=== PATIENT | female | born 1995 | race Caucasian/White ===

== ENCOUNTER 2019-04-21 16:10 | Emergency (ER) | payer OTHER | END 2019-04-21 18:35 | disposition left against medical advice (07) | LOC: ED 16:10 | DX: Z53.21 Procedure and treatment not carried out due to patient leaving prior to being seen by health care provider (principal) ==

== ENCOUNTER 2020-01-04 09:22 | Emergency (ER) | payer OTHER ==
[~2020-01-04] VITALS: Ht 160 cm; Wt 77.1 kg
[2020-01-04 09:32] VITALS: Ht 160 cm; Wt 77.1 kg
[2020-01-04 10:43] VITALS: BP 132/75
== END 2020-01-04 10:34 | disposition home or self-care (01) ==
LOC: ED 09:22
DX: S61.012A Laceration without foreign body of left thumb without damage to nail, initial encounter (principal); S61.512A Laceration without foreign body of left wrist, initial encounter; S61.411A Laceration without foreign body of right hand, initial encounter; W22.8XXA Striking against or struck by other objects, initial encounter; Y93.89 Activity, other specified; Y92.89 Other specified places as the place of occurrence of the external cause; Y99.8 Other external cause status

== ENCOUNTER 2020-06-05 20:33 | Emergency (ER) | payer OTHER ==
[~2020-06-05] VITALS: Ht 160 cm; Wt 52.2 kg
[2020-06-05 20:37] VITALS: Ht 160 cm; Wt 52.2 kg
[2020-06-06 00:57] VITALS: BP 115/69
== END 2020-06-06 00:57 | disposition home or self-care (01) ==
LOC: ED 20:33
DX: S82.841A Displaced bimalleolar fracture of right lower leg, initial encounter for closed fracture (principal); Z98.890 Other specified postprocedural states; V00.131A Fall from skateboard, initial encounter; Y93.51 Activity, roller skating (inline) and skateboarding; Y92.89 Other specified places as the place of occurrence of the external cause; Y99.8 Other external cause status
CPT/HCPCS: Q0092